=== PATIENT | female | born 1980 | race Caucasian/White ===

== ENCOUNTER → 2017-04-25 | Outpatient (CLI) | payer OTHER ==
--- NOTE | 2017-04-25 15:37 | DI ---
LEFT ANKLE, 04/25/2017 2:46 PM: Clinical History: Left ankle pain. Previous Exam: 04/28/2012. 3 views are submitted. There is no acute soft tissue, osseous, or joint abnormality. There is an os t rigonum. In the posterior aspect of the tibiotalar joint, calcifications have developed since the las t exam. The last study also had stress views that showed widening of the lateral portion of the ankle joint. There is some calcification posterior to the tibiotalar joint and this may represent heteroto pic bone formation secondary to previous trauma, or possibly secondary to previous repair. Reading: Normal left ankle exam. The previous exam included stress views that showed mild widening of the late ral aspect of the ankle joint. The calcification may represent heterotopic bone formation secondary t o the previous trauma.
--- NOTE | 2017-04-25 15:39 | DI ---
LEFT FOOT, 04/25/2017 2:46 PM: Clinical History: Left ankle pain. Previous Exam: 04/28/2012. 3 views are submitted. There is no acute soft tissue, osseous, or joint abnormality. Reading: Normal left foot exam.
== END ==
LOC: MOB RAD 14:49
PROVIDERS: ATTEND Nurse Practitioner Family
DX: M25.572 Pain in left ankle and joints of left foot (principal)
CPT/HCPCS: 73610; 73630

== ENCOUNTER 2018-11-03 08:00 | Inpatient (IN) ==
[2018-11-03] MEDS ORDERED: FAMOTIDINE 20 MG/2 ML VIAL IVP ONE (11:00)
[2018-11-03] MEDS ORDERED: LIDOCAINE HCL 2 % 10 ML JELLY URO-JECT TOPICAL PRN (11:00)
[2018-11-03] MEDS ORDERED: Lactated Ringers 1,000 ML PRIMARY IV SCH (11:00)
[2018-11-03] MEDS ORDERED: CefOXitin Inj 2 GM in Sodium Chloride 0.9% 100 ML IV ONE (11:00)
[2018-11-03] MEDS ORDERED: Metoclopramide Inj 10 MG/2 ML VIAL IV ONE (11:00)
[2018-11-03] MEDS ORDERED: Oxytocin 20 Units + LR 20 UNIT/1,000 ML BAG IV SCH ×2 (11:00→15:02)
[2018-11-03] MEDS ORDERED: LIDOCAINE W/ SODIUM BICARB 0.5 ML SYR SUBD PRN ×2 (11:00→14:11)
[2018-11-03] MEDS ORDERED: CITRIC ACID/SODIUM CITRATE 30 ML CUP PO ONE (11:00)
[2018-11-03] MEDS ORDERED: Lactated Ringers 1,000 ML PRIMARY IV ONE (11:00)
[2018-11-03 11:40] LABS: Hematocrit [HCT] 36.3 % (37.0-47.0); Hemoglobin [HGB] 12.4 g/dL (12.0-16.0); MEAN CORPUSCULAR HEMOGLOBIN 30.6 PG (27-31); MEAN CORPUSCULAR HGB CONC 34.2 g/dL (33-37); MEAN CORPUSCULAR VOLUME 89.6 FL (81-99); RED BLOOD COUNT 4.05 10^6/uL (4.20-5.40)
[2018-11-03 11:50] LABS: BLOOD UREA NITROGEN 10 mg/dL (7-22); BUN/CREATININE RATIO 16.66 (6-20); SERUM ALBUMIN 3.5 g/dL (3.5-4.8); Uric Acid 5.1 mg/dl (2.5-7.0)
[2018-11-03] MEDS ORDERED: fentaNYL Inj 100 MCG/2 ML VIAL ONE (12:52)
[2018-11-03] MEDS ORDERED: BUPIVACAINE SPINAL 7.5 MG/1 ML - 2 ML IV ONE (12:54)
[2018-11-03] MEDS ORDERED: Sodium Chloride 0.9% vial 10 ML ONE (13:14)
[2018-11-03] MEDS ORDERED: OXYTOCIN 10 UNIT/1 ML ONE ×3 (13:23→13:39)
[2018-11-03] MEDS ORDERED: KETOROLAC 30 MG/1 ML VIAL ONE (14:04)
--- NOTE | 2018-11-03 14:09 | CRNA.PROCE ---
Central Neuraxis Block Placemt - - Safety Measures: Time Out Taken - - Type of Block: Subarachnoid Reason for Block: Surgical Moniters Used During Block: EKG Positioning: Sitting Skin Prep Used: ChloroPrep Skin Infiltration - Enter Amount Used in Comment Field: 1% Xylocaine (mL): Yes (skin wheal) Spinal Needle Used: 25 Audra 80 mm Local Anesthetic - Enter Amount Used in Comment Field: 0.75 % Bupivacaine with Dextrose (ml): Yes (2ml) Additive Used - Enter Amount Used in Comment Field: Fentanyl (mcg): Yes (15mcg) Bioclusive Dressing Applied: No Anesthesia Time - Other Weight: 87.18 kg Height: 5 ft 4 in Body Mass Index (BMI): 33.0
--- NOTE | 2018-11-03 14:10 | CRNA.PROGR ---
Anesthesia Time - Procedure/Recovery Time Start Date: 11/03/18 End Date: 11/03/18 Anesthesia : Time In: 13:02 Anesthesia : Time Out: 14:07 Anesthesia : Total Time: 65 - Total Anesthesia Time Total Anesthesia Time (minutes): 65 - Other Weight: 87.18 kg Height: 5 ft 4 in Body Mass Index (BMI): 33.0 Physical Status: P2 Anesthesia Type: Spinal Block Obstetrics: C/S anesthesia only
--- NOTE | 2018-11-03 14:10 | CRNA.PROGR ---
Anesthesia Recovery Phase I - Post Anesthesia Evaluation Patient's Condition on Arrival in Phase I: Stable Pain Level: 0
[2018-11-03] MEDS ORDERED: ONDANSETRON 4 MG/2 ML VIAL IVP PRN ×2 (14:11→15:02)
[2018-11-03] MEDS ORDERED: HYDROmorphone 2 MG/1 ML IVP PRN (14:11)
--- NOTE | 2018-11-03 14:37 | OB.OP.NOTE ---
Operative Report Surgeon: Francesco Lisa MD Fleet Technician: Anam Javier MD Anesthesia Type: Regional Anesthesia Provider: Cb Lockett CRNA Surgery Date: 11/03/18 Preoperative Diagnosis: IUP at 39 2/7 weeks by early u/s, chronic hypertension Postoperative Diagnosis: same, delivered. Procedure: Repeat low transverse section Complications: none Estimated Blood Loss (mL): 800 Indications: We do not offer vaginal after section trials at our facility and the patient did not desire this. She is requesting a repeat section. Findings: viable female , cephalic presentation, clear amniotic fluid. Description of Procedure: The patient was taken to the operating room where spinal anesthesia was found to be adequate. She was then prepared and draped in the normal sterile fashion in the dorsal supine position with a leftward tilt. A Pfannenstiel skin incision was then made with the scalpel and carried through to the underlying layer of fascia with the Bovie. The fascia was incised in the midline and the incision extended laterally with the Bovie. The superior aspect of the fascial incision was then grasped with the Jani clamps, elevated, and the underlying rectus muscles dissected off bluntly. Attention was then turned to the inferior aspect of this incision which, in a similar fashion, was grasped with the Jani clamps and the rectus muscles dissected off both bluntly and with the Bovie. The rectus muscle was then in the midline, and the peritoneum identified and entered digitally. The peritoneal incision was then extended superiorly and inferiorly with good visualization of the bladder. The Neville retractor was then inserted and the vesicouterine peritoneum was identified. The lower uterine segment was incised in a transverse fashion with the scalpel. The uterine inci sherin was then extended laterally in a blunt fashion. The infant's head was delivered atraumatically. The nose and mouth were suctioned with the bulb suction and the cord clamped and cut after 45 seconds for delayed cord clamping. The infant was handed off to the awaiting nurse. Cord gases and cord blood were sent for analysis. The placenta was then removed manually; the uterus exteriorized, and cleared of all clots and debris. The uterine incision was repaired with 0 Vicryl in a running, locked fashion. A second layer of the same suture was used to obtain excellent hemostasis. The peritoneal cavity was then copiously irrigated with warm saline. The uterus was returned to the abdomen. The paracolic gutters were copiously irrigated with warm saline and a second look at the uterine incision continued to reveal excellent hemostasis. The peritoneum was closed with 3-0 Vicryl. The fascia reapproximated with 0 Vicryl in a running fashion. The subcutaneous space was irrigated copiously with warm saline and then closed first with 3-0 Vicryl and then more superficially with Insorb absorbable sutures. The skin was reapproximated with Steri-Strips and a Silverlon dressing applied. Fundal massage was completed with no clots in vaginal vault. The patient tolerated the procedure well. Sponge, lap, and needle counts were correct x2. Mefoxin was given preoperatively less than one hour prior to incision time. The patient was taken to the recovery room in stable condition.
[2018-11-03] MEDS ORDERED: D5-LR 1,000 ML PRIMARY IV SCH (15:02)
[2018-11-03] MEDS ORDERED: FAMOTIDINE 20 MG/2 ML VIAL IVP PRN (15:02)
[2018-11-03] MEDS ORDERED: Naloxone Inj 0.01 MG, Sodium Chloride 0.9% vial 1 ML IVP PRN ×2 (15:02)
[2018-11-03] MEDS ORDERED: CALCIUM CARBONATE 500 MG (TUMS) CHEWABLE TABLET PO PRN (15:02)
[2018-11-03] MEDS ORDERED: Nalbuphine Inj 20 MG/ML Ampule IVP PRN (15:02)
[2018-11-03] MEDS ORDERED: diphenhydrAMINE 25 MG CAPSULE PO PRN (15:02)
[2018-11-03] MEDS ORDERED: LANOLIN HPA 40 GM TUBE TOPICAL PRN (15:02)
[2018-11-03] MEDS ORDERED: diphenhydrAMINE 50 MG/1 ML VIAL IV PRN (15:02)
[2018-11-03] MEDS ORDERED: DIPH,PERTUSS,TET(ADACEL) VAC/PF 0.5 ML (Tdap) IM ONE (15:02)
[2018-11-03] MEDS: oxyCODONE-ACETAMINOPHEN 5-325 TAB PO PRN ×2 (16:46→20:25)
[2018-11-03] MEDS: HYDROmorphone 2 MG/1 ML IV PRN ×2 (18:55→22:39)
[2018-11-03] MEDS: KETOROLAC 15 MG/1 ML VIAL IVP SCH (19:32)
[2018-11-04] MEDS: BUTORPHANOL TARTRATE 2 MG/1 ML VIAL IVP PRN ×3 (00:18→06:49)
[2018-11-04] MEDS: oxyCODONE-ACETAMINOPHEN 5-325 TAB PO PRN ×6 (00:23→21:07)
[2018-11-04] MEDS: KETOROLAC 15 MG/1 ML VIAL IVP SCH ×3 (01:47→14:18)
[2018-11-04 05:42] LABS: Hematocrit [HCT] 33.1 % (37.0-47.0); Hemoglobin [HGB] 11.9 g/dL (12.0-16.0); MEAN CORPUSCULAR HEMOGLOBIN 32.3 PG (27-31); MEAN CORPUSCULAR VOLUME 89.9 FL (81-99); MEAN PLATELET VOLUME 9.1 FL (7.4-12.2); RED BLOOD COUNT 3.68 10^6/uL (4.20-5.40)
[2018-11-04 06:13] LABS: BLOOD UREA NITROGEN 8 mg/dL (7-22); BUN/CREATININE RATIO 11.42 (6-20); SERUM ALBUMIN 2.8 g/dL (3.5-4.8); Uric Acid 5.1 mg/dl (2.5-7.0)
[2018-11-04] MEDS ORDERED: MMR VACCINE 12500 UNIT/0.5 ML SUBCUT ONE (07:17)
[2018-11-04] MEDS: Prenatal Multivitamin Tab 1 TAB TAB PO SCH (08:33)
[2018-11-04] MEDS: Senna/Docusate Tab 1 TAB TAB PO SCH ×2 (08:33→21:07)
--- NOTE | 2018-11-04 09:01 | OB.PROGRES ---
Subjective Post Day: 1 Pain Management: PO Maria Catheter: Yes Flatus: No Lochia Color: Rubra/Red Scant < 10 ml Diet: Regular Feeding Method: Exculsively Ambulating: No Concerns / Additional Information: Had a rough time with some pain issues last noc, but much better today with stadol. Hasn't been out of bed yet. Maria is still in. Breast feeding going well. Objective - General General Appearance: POSITIVE: No Acute Distress, Cooperative - Cardiovacular Cardiovascular Exam: POSITIVE: RRR, No Murmur Edema: +1 Pedal Edema Extremities: Negative Nathan's - Bilaterally - Respiratory Respiratory Exam: POSITIVE: Clear to Auscultation - Bilaterally, Breathing Non Labored - Abdomen Bowel Sounds: Present Abdominal Wound Assessment: Silverlone Dressing Assesstment / Plan (1) Status post repeat low transverse section Current Visit: Yes Status: Acute Assessment / Plan: -routine cares. -breast feeding going well. -rh positive. -rubella--needs MMR prior to discharge for non-immune status. -d/c maria today and will shower this afternoon. -so far, has been normotensive, but will probably need back on an anti- hypertensive regimen. -possible d/c home tomorrow.
[2018-11-04] MEDS: IBUPROFEN 800 MG TABLET PO SCH (21:07)
[2018-11-05] MEDS: oxyCODONE-ACETAMINOPHEN 5-325 TAB PO PRN ×3 (02:30→13:01)
[2018-11-05] MEDS: IBUPROFEN 800 MG TABLET PO SCH (07:36)
[2018-11-05] MEDS ORDERED: NIFEdipine 30 MG ER 24H TABLET PO SCH (09:00)
[2018-11-05] MEDS: Senna/Docusate Tab 1 TAB TAB PO SCH (09:40)
[2018-11-05] MEDS: Prenatal Multivitamin Tab 1 TAB TAB PO SCH (09:40)
== END 2018-11-05 14:06 | disposition home or self-care (01) | DRG 787 ==
LOC: OBIP 10:47 → OBOR 11:00 → OBIP 14:30 → MED/SURG 14:30
PROVIDERS: ADMIT Family Medicine; ATTEND Family Medicine